=== PATIENT | female | born 1995 | race American Indian/Alaskan Native ===

== ENCOUNTER 2018-06-08 11:08 | Observation (INO) | payer MEDICAID ==
[2018-06-08] MEDS ORDERED: LACTATED RINGERS 500 ML IV ONE (12:00)
[2018-06-08 12:19] LABS: Bilirubin,Urine NEG (Negative); Blood,Urine MOD (Negative); Color,Urine Yellow (Yellow); Mucus,Urine FEW /HPF; Protein,Urine <15 mg/dL mg/dL (Negative); Urobilinogen,Urine < 2.0 mg/dL (<2.0)
[2018-06-08] MEDS ORDERED: ZOFRAN IV STA (12:36)
[2018-06-08 14:01] LABS: Basophils # (Auto) 0.1 K/mm3 (0.0-0.1); Eosinophils % (Auto) 0.9 % (0.0-4.3); Lymphocytes # (Auto) 1.6 K/mm3 (1.2-5.4); Lymphocytes % (Auto) 29.9 % (13.4-35.0); Mean Corpuscular HGB Conc 33 % (30-34); Mean Corpuscular Volume 87 fl (79-97); Monocytes # (Auto) 0.3 K/mm3 (0.0-0.8); Platelet Count 205 K/mm3 (140-440); Red Blood Count 4.15 M/mm3 (3.65-5.03); Red Cell Distribution Width 12.9 % (13.2-15.2)
[2018-06-08 14:20] LABS: Alanine Aminotransferase 6 units/L (7-56); Albumin 3.7 g/dL (3.9-5); BUN/Creatinine Ratio 17; Blood Urea Nitrogen 5 mg/dL (7-17); Calcium 8.9 mg/dL (8.4-10.2); Hemolysis Index 5
[2018-06-08] MEDS ORDERED: ANCEF/NS 1 GM/50 ML 1 GM/50 ML BAG IV ONE (14:45)
--- NOTE | 2018-06-08 15:01 | History and Physical Report ---
History of Present Illness Date of examination: 06/08/18 History of present illness: Patient is a 22 year old , EDC 09/06/18 at 27 weeks gestation who presented to triage complaining of having pain in her right upper back, flank and epigastric region for about 2 weeks. The pain got worse since yesterday and she passed some blood in her urine. She also said that she felt like she had a fever. She denies any cough, chest pain, fluid leakage, or contractions. She reports good movement. In triage, her temp was 98F. tracing is CAT1. Urine is blood tinged. She is [facility] patient. Her records are not available. Past History Past Medical History: no pertinent history Past Surgical History: no surgical history Family/Genetic History: none - Obstetrical History Expected Date of Delivery: 09/06/18 Actual Gestation: 27 Week(s) 1 Day(s) : 4 Para: 3 Number of Living Children: 3 Medications and Allergies Allergies Allergy/AdvReac Type Severity Reaction Status Date / Time No Known Allergies Allergy Verified 06/08/18 11:45 Active Meds: Active Medications Cefazolin Sodium (Ancef/Ns 1 Gm/50 Ml) 1 gm in 50 mls @ 100 mls/hr IV ONCE ONE; Protocol Stop: 06/08/18 15:14 Last Admin: 06/08/18 14:21 Dose: 100 mls/hr Documented by: - Vital Signs Vital signs: Vital Signs Pulse BP 79 121/71 06/08/18 11:45 06/08/18 11:45 Temp Pulse Resp BP Pulse Ox 79 20 121/71 06/08/18 11:47 06/08/18 11:47 06/08/18 11:47 - Physical Exam Cardiovascular: Normal S1, Normal S2 Lungs: Positive: Clear to auscultation Vulva: both: normal Vagina: Positive: other (greenish discharge.) Extremities: Positive: other (++ CVA TN.) Deep Tendon Reflex Grade: Normal +2 - Obstetrical FHR: category 1 Uterine Contraction Monitor Mode: External Cervical Dilatation: 0 Cervical Effacement Percentage: 0 station: -3 Uterine Contraction Pattern: Absent Results Result Diagrams: 06/08/18 13:54 06/08/18 13:54 Abnormal lab results 06/08/18 06/08/18 Range/Units 13:54 13:54 RDW 12.9 L (13.2-15.2) % Carbon Dioxide 21 L (22-30) mmol/L BUN 5 L (7-17) mg/dL Creatinine 0.3 L (0.7-1.2) mg/dL ALT 6 L (7-56) units/L Albumin 3.7 L (3.9-5) g/dL All other labs normal. Assessment and Plan - Patient Problems (1) 27 weeks gestation of Current Visit: Yes Status: Acute (2) Hematuria Current Visit: Yes Status: Acute (3) Pyelonephritis Current Visit: Yes Status: Acute Plan to address problem: IV ancef given. Renal sono to rule out renal stone. (4) Febrile illness Current Visit: Yes Status: Acute Plan to address problem: CBC showed no leukocytosis. Will do rapid flu test. Tylenol for fever. Continue IV hydration. (5) Epigastric abdominal pain Current Visit: Yes Status: Acute Plan to address problem: Gallbladder sono. Chem, LFTs, amylase, lipase. (6) Nausea Current Visit: Yes Status: Acute Plan to address problem: Zofran PRN.
--- NOTE | 2018-06-08 18:16 | Ultrasound Report ---
PROCEDURE: US OB BPP WO NON-STRESS TECHNIQUE: Sonographic evaluation for breathing, movement, tone, and amniotic flui d volume was performed. HISTORY: well being COMPARISONS: None . FINDINGS: FETUS Amniotic fluid volume Normal-score 2. At least one vertical pocket >2 cm or more in vertical axis . breathing: Normal-score 2 . movement: Normal-score 2 . tone: Normal-score 2 . Score: 8 of 8 . IMPRESSION: Normal biophysical profile . This document is electronically signed by Ninfa Wong MD., June 08 2018 06:14:29 PM ET
--- NOTE | 2018-06-08 18:23 | Ultrasound Report ---
PROCEDURE: US OB LIMITED TECHNIQUE: Real-time limited sonographic examination was performed for evaluation of each fetus with image documentation (1 or more fetuses). HISTORY: DORIS and placental placement COMPARISONS: None . FINDINGS: FETUS IUP: Single living intrauterine . Position: Cephalic . Placental position: Anterior grade 0, without previa . Amniotic fluid volume: Amniotic fluid index measures 12.4 cm Heart rate and rhythm: 130 BPM, Regular . anatomic survey: Not performed . IMPRESSION: Amniotic fluid index measures 12.4 cm. This document is electronically signed by Ninfa Wong MD., June 08 2018 06:21:27 PM ET
[2018-06-08] MEDS ORDERED: ZOFRAN ONE (19:42)
[2018-06-08] MEDS: ZOFRAN IV PRN (19:45)
--- NOTE | 2018-06-08 19:58 | Ultrasound Report ---
PROCEDURE: US GALLBLADDER TECHNIQUE: Real-time sonography in multiple planes of the gallbladder fossa and CBD with imaging of the adjacent liver, pancreas, and right kidney was performed with image documentation. CPT 97842 HISTORY: Right upper quadrant pain COMPARISONS: None . FINDINGS: Liver: Normal size and echotexture with no evidence of cystic or solid mass lesion. Gallbladder: Fluid filled. No gallstones, wall thickening, pericholecystic fluid, or sonographic Mur phy's sign. Intrahepatic bile ducts: Normal . Extrahepatic bile ducts: Common bile duct measures 2 mm in caliber. Pancreas: Not fully visualized. Right kidney: Normal echotexture. No focal renal mass, calculus, or hydronephrosis. Other: No free fluid. IMPRESSION: Unremarkable exam . This document is electronically signed by Ninfa Wong MD., June 08 2018 07:56:16 PM ET
[2018-06-08] MEDS ORDERED: TYLENOL PR ONE (20:27)
--- NOTE | 2018-06-08 21:01 | Ultrasound Report ---
PROCEDURE: US RENAL BILAT TECHNIQUE: Real-time sonography in multiple planes of the kidneys, ureters and urinary bladder was p erformed with image documentation. HISTORY: flank pain, hematuria COMPARISONS: None . FINDINGS: RIGHT kidney: Normal echotexture. No focal renal mass, calculus, or hydronephrosis. Length: 12.3 x 6.0 x 6.9 cm. LEFT kidney: Normal echotexture. No focal renal mass, calculus, or hydronephrosis. Length: 10.8 x 5 .6 x 6.2 cm. Bladder: Empty. IMPRESSION: Normal Examination . This document is electronically signed by Allen Gomez MD., June 08 2018 08:58:49 PM ET
[2018-06-08] MEDS ORDERED: LACTATED RINGERS 1,000 ML ONE (21:59)
[2018-06-08] MEDS: LACTATED RINGERS 1,000 ML IV SCH (22:00)
[2018-06-08] MEDS: ANCEF/NS 1 GM/50 ML 1 GM/50 ML BAG IV SCH (22:04)
[2018-06-09] MEDS ORDERED: PITOCin/NS 30 UNIT/500ML 30 UNITS/500 ML BAG IV SCH (05:00)
[2018-06-09] MEDS: ANCEF/NS 1 GM/50 ML 1 GM/50 ML BAG IV SCH (06:00)
[2018-06-09 07:59] VITALS: BP 113/71
[2018-06-09] MEDS: ZOFRAN IV PRN (10:40)
[2018-06-09] MEDS: LACTATED RINGERS 1,000 ML IV SCH (10:40)
[2018-06-09] MEDS ORDERED: TYLENOL PO PRN (10:56)
[2018-06-09] MEDS ORDERED: AFLURIA QUAD 2018-2019 SYRINGE IM ONE (12:00)
--- NOTE | 2018-06-09 15:55 | Discharge Summary ---
Providers - Providers Date of Admission: 06/08/18 15:58 Attending physician: VALERIE CELAYA Primary care physician: VALERIE CELAYA Hospitalization Reason for admission: other (nausea, retching, RUQ pain) Delivery: other (undelivered) Discharge diagnosis: other (nausea) Hospital course: 22yo admitted for observation due to vomiting and RUQ pain. All labs wnl. No electrolyte imbalance. NST reactive. RUQ US negative for gallstones. Renal US negative for kidney stones. Afebrile. Tolerating PO. Discharged home with f/u in clinic within one week. Condition at discharge: Stable Disposition: - TO HOME OR SELFCARE - Discharge Diagnoses (1) Nausea Status: Acute Plan - Provider Discharge Summary Additional instructions: [] Smoking cessation referral if applicable(refer to patient education folder for contact #) [] Refer to [facility] Booklet Call your doctor immediately for: * Fever > 100.5 * Heavy vaginal bleeding ( >1 pad per hour) * Severe persistent headache * Shortness of breath * Reddened, hot, painful area to leg or breast * Drainage or odor from incision. * Keep incision clean and dry at all times and follow doctor's instructions regarding bathing/showering - Follow up plan Follow up: VALERIE CELAYA MD [Primary Care Provider] - 7 Days
== END 2018-06-09 16:36 | disposition home or self-care (01) ==
LOC: TRG 11:08 → LD 15:58
PROVIDERS: ADMIT Obstetrics & Gynecology; ATTEND Obstetrics & Gynecology
DX: O23.02 Infections of kidney in pregnancy, second trimester (principal); O26.892 Other specified pregnancy related conditions, second trimester; R50.9 Fever, unspecified; R11.0 Nausea; R31.9 Hematuria, unspecified; Z3A.27 27 weeks gestation of pregnancy
CPT/HCPCS: 36415; 59025; 76705; 76770; 76815; 76819; 80053; 81001; 82150; 83690; 85025; 87400; 96365; 96366; 96375; 96376; G0378; J0690; J2405; J7120; 90686; 96360; 96374

== ENCOUNTER 2018-08-07 17:03 | Outpatient (CLI) | payer MEDICAID ==
[2018-08-07] MEDS ORDERED: LACTATED RINGERS 1,000 ML IV ONE (17:11)
[2018-08-07] MEDS ORDERED: ZOFRAN IV ONE (17:55)
[2018-08-07 19:05] VITALS: BP 122/65
[2018-08-07 19:35] LABS: Bilirubin,Urine NEG (Negative); Blood,Urine NEG (Negative); Color,Urine Straw (Yellow); Protein,Urine <15 mg/dL mg/dL (Negative); Urobilinogen,Urine < 2.0 mg/dL (<2.0); WBC,Urine < 1.0 /HPF (0.0-6.0)
== END 2018-08-07 20:22 | disposition home or self-care (01) ==
LOC: TRG 17:03
PROVIDERS: ATTEND Obstetrics & Gynecology
DX: O21.2 Late vomiting of pregnancy (principal); O26.893 Other specified pregnancy related conditions, third trimester; R10.30 Lower abdominal pain, unspecified; Z3A.35 35 weeks gestation of pregnancy
CPT/HCPCS: 59025; 81001; 96361; 96374; J2405; J7120; 96360

== ENCOUNTER 2018-08-10 11:44 | Outpatient (CLI) | payer MEDICAID ==
[2018-08-10 12:44] LABS: Hematocrit 31.6 % (30.3-42.9); Hemoglobin 10.9 gm/dl (10.1-14.3); Mean Corpuscular HGB Conc 34 % (30-34); Mean Corpuscular Volume 84 fl (79-97); Platelet Count 185 K/mm3 (140-440); Red Blood Count 3.75 M/mm3 (3.65-5.03); Red Cell Distribution Width 13.1 % (13.2-15.2)
[2018-08-10 12:52] LABS: Bilirubin,Urine NEG (Negative); Blood,Urine NEG (Negative); Color,Urine Yellow (Yellow); Mucus,Urine 1+ /HPF; Protein,Urine <15 mg/dL mg/dL (Negative); Urobilinogen,Urine < 2.0 mg/dL (<2.0)
[2018-08-10] MEDS ORDERED: LACTATED RINGERS 500 ML IV ONE (13:00)
[2018-08-10 13:07] LABS: Alanine Aminotransferase 9 units/L (7-56); Uric Acid 4.2 mg/dL (3.5-7.6)
[2018-08-10] MEDS ORDERED: TYLENOL PO ONE (13:48)
[2018-08-10 14:52] VITALS: BP 132/67
== END 2018-08-10 15:13 | disposition home or self-care (01) ==
LOC: TRG 11:44
PROVIDERS: ATTEND Obstetrics & Gynecology
DX: O47.03 False labor before 37 completed weeks of gestation, third trimester (principal); O13.3 Gestational [pregnancy-induced] hypertension without significant proteinuria, third trimester; Z3A.36 36 weeks gestation of pregnancy
CPT/HCPCS: 36415; 59025; 81001; 82565; 83615; 84450; 84460; 84550; 85027; 87086

== ENCOUNTER 2018-08-16 14:43 | Outpatient (CLI) | payer MEDICAID ==
[2018-08-16 15:31] VITALS: BP 117/73
== END 2018-08-16 15:49 | disposition other institution (70) ==
LOC: TRG 14:43
PROVIDERS: ATTEND Obstetrics & Gynecology
DX: O47.03 False labor before 37 completed weeks of gestation, third trimester (principal); O13.3 Gestational [pregnancy-induced] hypertension without significant proteinuria, third trimester; Z3A.37 37 weeks gestation of pregnancy
CPT/HCPCS: 36415; 59025; 71275; 80048; 80076; 83880; 84484; 84702; 85025; 85379; 85610; 85730; 93005; 93010; 96360; J7120; Q9967

== ENCOUNTER 2018-08-16 16:01 | Outpatient (CLI) | payer MEDICAID ==
--- NOTE | 2018-08-16 16:19 | Emergency Department Report ---
Blank Doc - Documentation Documentation: This is a 22-year-old female that presents with chest pain and SOB. Stated is 37 weeks . This initial assessment/diagnostic orders/clinical plan/treatment(s) is/are subject to change based on patient's health status, clinical progression and re- assessment by fellow clinical providers in the ED. Further treatment and workup at subsequent clinical providers discretion. Patient/guardians urged not to elope from the ED as their condition may be serious if not clinically assessed and managed. Initial orders include: 1- Patient sent to MAIN ED for further evaluation and treatment 2- labs 3- EKG
[2018-08-16 16:46] LABS: Basophils % (Auto) 0.5 % (0.0-1.8); Eosinophils % (Auto) 0.6 % (0.0-4.3); Hematocrit 31.3 % (30.3-42.9); Hemoglobin 10.4 gm/dl (10.1-14.3); Lymphocytes # (Auto) 1.8 K/mm3 (1.2-5.4); Lymphocytes % (Auto) 27.3 % (13.4-35.0); Mean Corpuscular HGB Conc 33 % (30-34); Mean Corpuscular Volume 86 fl (79-97); Monocytes # (Auto) 0.4 K/mm3 (0.0-0.8); Monocytes % (Auto) 6.8 % (0.0-7.3); Platelet Count 212 K/mm3 (140-440); Red Blood Count 3.65 M/mm3 (3.65-5.03); Red Cell Distribution Width 13.4 % (13.2-15.2)
[2018-08-16 16:56] LABS: INR 0.98 (0.87-1.13); Partial Thromboplastin Time 25.5 Sec. (24.2-36.6)
[2018-08-16 17:12] LABS: BUN/Creatinine Ratio 13; Blood Urea Nitrogen 5 mg/dL (7-17); Calcium 8.9 mg/dL (8.4-10.2); Hemolysis Index 4
--- NOTE | 2018-08-16 18:19 | Emergency Department Report ---
ED Shortness of Breath HPI - General Chief Complaint: Chest Pain Stated Complaint: Chest pain with naresh Time Seen by Provider: 08/16/18 16:18 Source: patient Mode of arrival: Ambulatory Limitations: No Limitations - History of Present Illness Initial Comments: 22-year-old female with a past medical history of elevated blood pressure during previous presents to the ER as to be sent from L&D to be evaluated for shortness of breath. Patient states that this morning while walking to the store she felt shortness of breath and felt like her hands were swollen and tight. After taking a shower hand tightness and swelling improved. Patient reports swelling to her legs/ankles that resolved 2 days ago. She recently completed a workup for preeclampsia including 24 hour urine collection. Upon follow-up visit yesterday she was told that she had both seen in her urine but her blood pressure had improved and therefore no further treatment was recommended. Patient states she also went to labor and delivery complaining of contractions which has since resolved. Patient also states that she has no left eye feeling shortness of breath and denies chest pain. This is her fourth , she has 3 living children, denies previous history of miscarriages or abortions. Also denies recent travel, calf tenderness, unilateral leg edema, or history of PE/DVT. 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 [employer] 2ND SHIFT: Oliver Parker - Related Data Home Medications Medication Instructions Recorded Confirmed Last Taken No Known Home Medications [No 08/16/18 08/16/18 Unknown Reported Home Medications] Allergies Allergy/AdvReac Type Severity Reaction Status Date / Time No Known Allergies Allergy Verified 08/16/18 16:01 ED Review of Systems ROS: Stated complaint: Chest pain with naresh Other details as noted in HPI Comment: All other systems reviewed and negative ED Past Medical Hx - Past Medical History Previous Medical History?: No Hx Hypertension: No Hx Congestive Heart Failure: No Hx Diabetes: No Hx Deep Vein Thrombosis: No Hx Renal Disease: No Hx Sickle Cell Disease: No Hx Seizures: No Hx Asthma: No Hx COPD: No Hx HIV: No - Surgical History Past Surgical History?: No - Social History Smoking Status: Never Smoker Substance Use Type: None - Medications Home Medications: Home Medications Medication Instructions Recorded Confirmed Last Taken Type No Known Home Medications [No 08/16/18 08/16/18 Unknown History Reported Home Medications] ED Physical Exam - General Limitations: No Limitations - Other Other exam information: General: No limitations, patient is alert in no acute distress Head exam: Atraumatic, normocephalic Eyes exam: Normal appearance, non-icteric sclera ENT: Moist mucous membrane Neck exam: Normal inspection, full range of motion, no meningismus nontender Respiratory exam: Clear to auscultation bilateral, no wheezes, rales, crackles Cardiovascular: Normal rate and rhythm, normal heart sounds Abdomen: Soft, nondistended, and nontender, with normal bowel sounds, no rebound, or guarding Extremity: Full range of motion normal inspection no deformity, no calf tenderness or leg edema Back: Normal Inspection, full range of motion, no tenderness Neurologic: Alert, oriented x3, cranial nerves intact, no motor or sensory deficit Psychiatric: normal affect, normal mood Skin: Warm, dry, intact ED Course Vital Signs 08/16/18 08/16/18 08/16/18 16:19 18:10 19:21 Temperature 98.1 F Pulse Rate 90 96 H Respiratory 20 18 Rate Blood Pressure 150/88 127/75 Blood Pressure 127/75 [Left] O2 Sat by Pulse 100 100 100 Oximetry 08/16/18 19:27 Temperature Pulse Rate 105 H Respiratory 22 Rate Blood Pressure Blood Pressure 154/89 [Left] O2 Sat by Pulse 100 Oximetry - Reevaluation(s) Reevaluation #1: 08/16/18 19:42 Patient blood pressure and HR iinitially improved compared to triage values. When she began experience contractions and pain her pressure increased again. Patient will be sent to labor and delivery while awaiting CT angiogram results. Still awaiting Dr Renetta parker call back - Consultations Consultation #1: 08/16/18 19:[address] Renetta Parker call back case d/w nurse Lili with L and D since pt is complaining of contracts since I am unable to speak to Dr. Parker at this time patient will be sent to labor and delivery while awaiting his call back. I am still awaiting CT angiogram chest results, patient does not have any signs of tachycardia or hypoxia. 08/16/18 19:45 Dr parker called back at this time. Aware pt on way to L and D and we are awaiting ct angio results. 08/16/18 21:[address] Oliver Parker. Patient is clear from the ER standpoint. Recommended outpatient vascular Doppler tomorrow to rule out DVT given the elevated d-dimer. However, patient does not have any clinical symptoms of DVT elevated d-dimer is expected in . ED Medical Decision Making - Lab Data Result diagrams: 08/16/18 16:33 08/16/18 16:33 Lab Results 08/16/18 08/16/18 08/16/18 Range/Units 16:33 16:33 16:33 WBC 6.5 (4.5-11.0) K/mm3 RBC 3.65 (3.65-5.03) M/mm3 Hgb 10.4 (10.1-14.3) gm/dl Hct 31.3 (30.3-42.9) % MCV 86 (79-97) fl MCH 29 (28-32) pg MCHC 33 (30-34) % RDW 13.4 (13.2-15.2) % Plt Count 212 (140-440) K/mm3 Lymph % (Auto) 27.3 (13.4-35.0) % Christian % (Auto) 6.8 (0.0-7.3) % Eos % (Auto) 0.6 (0.0-4.3) % Baso % (Auto) 0.5 (0.0-1.8) % Lymph # 1.8 (1.2-5.4) K/mm3 Christian # 0.4 (0.0-0.8) K/mm3 Eos # 0.0 (0.0-0.4) K/mm3 Baso # 0.0 (0.0-0.1) K/mm3 Seg Neutrophils % 64.8 (40.0-70.0) % Seg Neutrophils # 4.2 (1.8-7.7) K/mm3 PT 12.7 (12.2-14.9) Sec. INR 0.98 (0.87-1.13) APTT 25.5 (24.2-36.6) Sec. D-Dimer 3417.01 H (0-234) ng/mlDDU Sodium 136 L (137-145) mmol/L Potassium 3.5 L (3.6-5.0) mmol/L Chloride 102.0 (98-107) mmol/L Carbon Dioxide 21 L (22-30) mmol/L Anion Gap 17 mmol/L BUN 5 L (7-17) mg/dL Creatinine 0.4 L (0.7-1.2) mg/dL Estimated GFR > 60 ml/min BUN/Creatinine Ratio 13 % Glucose 91 (65-100) mg/dL Calcium 8.9 (8.4-10.2) mg/dL Total Bilirubin (0.1-1.2) mg/dL Direct Bilirubin (0-0.2) mg/dL Indirect Bilirubin mg/dL AST (5-40) units/L ALT (7-56) units/L Alkaline Phosphatase (35-129) units/L Troponin T < 0.010 (0.00-0.029) ng/mL NT-Pro-B Natriuret Pep (0-450) pg/mL Total Protein (6.3-8.2) g/dL Albumin (3.9-5) g/dL Albumin/Globulin Ratio % HCG, Quant (0-4) mIU/mL 08/16/18 08/16/18 08/16/18 Range/Units 16:33 16:40 19:18 WBC (4.5-11.0) K/mm3 RBC (3.65-5.03) M/mm3 Hgb (10.1-14.3) gm/dl Hct (30.3-42.9) % MCV (79-97) fl MCH (28-32) pg MCHC (30-34) % RDW (13.2-15.2) % Plt Count (140-440) K/mm3 Lymph % (Auto) (13.4-35.0) % Christian % (Auto) (0.0-7.3) % Eos % (Auto) (0.0-4.3) % Baso % (Auto) (0.0-1.8) % Lymph # (1.2-5.4) K/mm3 Christian # (0.0-0.8) K/mm3 Eos # (0.0-0.4) K/mm3 Baso # (0.0-0.1) K/mm3 Seg Neutrophils % (40.0-70.0) % Seg Neutrophils # (1.8-7.7) K/mm3 PT (12.2-14.9) Sec. INR (0.87-1.13) APTT (24.2-36.6) Sec. D-Dimer (0-234) ng/mlDDU Sodium (137-145) mmol/L Potassium (3.6-5.0) mmol/L Chloride (98-107) mmol/L Carbon Dioxide (22-30) mmol/L Anion Gap mmol/L BUN (7-17) mg/dL Creatinine (0.7-1.2) mg/dL Estimated GFR ml/min BUN/Creatinine Ratio % Glucose (65-100) mg/dL Calcium (8.4-10.2) mg/dL Total Bilirubin 0.30 (0.1-1.2) mg/dL Direct Bilirubin < 0.2 (0-0.2) mg/dL Indirect Bilirubin 0.1 mg/dL AST 15 (5-40) units/L ALT 10 (7-56) units/L Alkaline Phosphatase 151 H (35-129) units/L Troponin T < 0.010 (0.00-0.029) ng/mL NT-Pro-B Natriuret Pep 105.1 (0-450) pg/mL Total Protein 6.2 L (6.3-8.2) g/dL Albumin 3.7 L (3.9-5) g/dL Albumin/Globulin Ratio 1.5 % HCG, Quant 7419 H (0-4) mIU/mL - EKG Data -: EKG Interpreted by Oh EKG shows normal: sinus rhythm, axis (qrs 21), QRS complexes (qrsd 80), ST-T waves (no stemi) Rate: tachycardia (121 (pt states she was nervous during ekg)) - Radiology Data Radiology results: report reviewed PROCEDURE: CT ANGIO CHEST TECHNIQUE: Computerized tomographic angiography of the chest was performed after the IV injection of iodinated nonionic contrast including image processing. The image data was postprocessed using 2-dimensional multiplanar reformatted (MPR) and 3-dimensional (MIP and/or volume rendered) techniques. Automated exposure control, adjustment of mA and/or kV according to patient size, or iterative reconstruction dose optimization techniques were utilized. CT DOSE LENGTH PRODUCT: 1193.6 mGycm HISTORY: sob, 37 weeks preg, elevated ddimer COMPARISONS: None . FINDINGS: Entire lungs are not imaged. Contrast bolus timing is suboptimal for evaluation of the pulmonary arteries. The central pulmonary arteries only can be assessed. Heart and pericardium: Normal. Thoracic aorta: Normal. Pulmonary vasculature: Normal. Lymph nodes: No enlarged thoracic lymph nodes. Lungs: Mild interstitial prominence without large effusion identified. Pleural space: No effusion, thickening, or pneumothorax. Musculoskeletal structures: No significant abnormality. Upper abdominal structures: No significant abnormality. Prominent liver. IMPRESSION: Suboptimal contrast bolus timing for assessment of the pulmonary arteries. No central embolus. No definite distal embolus on the MIP reconstructed images. Mild prominence of bronchovascular interstitium may represent mild interstitial edema. Prominent liver incompletely imaged. - Medical Decision Making Patient was sent to labor and delivery with CTA of the chest pending since she began to experience contractions. CT results reviewed and no central pulmonary embolus and finding of mild prominence of the bronchovascular interstitium that may represent mild interstitial edema reviewed her back, patient has a normal BNP and otherwise does not appear to have any pulmonary edema or signs of heart failure. Case was discussed with Dr. Parker after results. Patient is cleared from the ED standpoint. She is asymptomatic in the hypoxia and persistent tachycardia. Recommend patient to return tomorrow for outpatient vascular Doppler. Cardiac Enzymes negative [address] elevation CA or concerns for non-STEMI. Patient to be disposed from MAINTENA[employer]CE [employer] 2[employer] standpoint by Dr. Parker. I discussed with him that they may need to arrange for outpatient Doppler tomorrow since it is not available tonight. - Differential Diagnosis dyspnea and , CHF, pulmonary embolism, preeclampsia Critical Care Time: No Critical care attestation.: If time is entered above; I have spent that time in minutes in the direct care of this critically ill patient, excluding procedure time. ED Disposition Clinical Impression: 37 weeks gestation of , Dyspnea, Uterine contractions Disposition: DC-30 STILL A PATIENT Is pt being admited?: No Condition: Stable Time of Disposition: 21:09 (pt was transfered to L and D )
[2018-08-16 19:27] LABS: Alanine Aminotransferase 10 units/L (7-56); Albumin 3.7 g/dL (3.9-5)
[2018-08-16 19:37] LABS: Bilirubin,Direct < 0.2 mg/dL (0-0.2)
--- NOTE | 2018-08-16 19:58 | Cat Scan Report ---
PROCEDURE: CT ANGIO CHEST TECHNIQUE: Computerized tomographic angiography of the chest was performed after the IV injection of iodinated nonionic contrast including image processing. The image data was postprocessed using 2-di mensional multiplanar reformatted (MPR) and 3-dimensional (MIP and/or volume rendered) techniques. Au tomated exposure control, adjustment of mA and/or kV according to patient size, or iterative reconstr uction dose optimization techniques were utilized. CT DOSE LENGTH PRODUCT: 1193.6 mGycm HISTORY: sob, 37 weeks preg, elevated ddimer COMPARISONS: None . FINDINGS: Entire lungs are not imaged. Contrast bolus timing is suboptimal for evaluation of the pulmonary arteries. The central pulmonary a rteries only can be assessed. Heart and pericardium: Normal. Thoracic aorta: Normal. Pulmonary vasculature: Normal. Lymph nodes: No enlarged thoracic lymph nodes. Lungs: Mild interstitial prominence without large effusion identified. Pleural space: No effusion, thickening, or pneumothorax. Musculoskeletal structures: No significant abnormality. Upper abdominal structures: No significant abnormality. Prominent liver. IMPRESSION: Suboptimal contrast bolus timing for assessment of the pulmonary arteries. No central emb olus. No definite distal embolus on the MIP reconstructed images. Mild prominence of bronchovascular interstitium may represent mild interstitial edema. Prominent liver incompletely imaged. The lung bases are not imaged. This document is electronically signed by Ines Coronado MD., August 16 2018 07:56:16 PM ET
[2018-08-16] MEDS ORDERED: LACTATED RINGERS 1,000 ML ONE (21:12)
[2018-08-16] MEDS ORDERED: LACTATED RINGERS 1,000 ML IV SCH (22:00)
[2018-08-16 22:18] VITALS: BP 110/56
== END 2018-08-16 22:55 | disposition home or self-care (01) ==
LOC: TRG 16:01 → ED 16:01 → EDSTATUS 19:59 → TRG 20:03 → LD 20:03 → ED 20:43 → LD 21:11 → TRG 21:11
PROVIDERS: ATTEND Obstetrics & Gynecology
DX: O26.893 Other specified pregnancy related conditions, third trimester (principal); R10.2 Pelvic and perineal pain; R07.9 Chest pain, unspecified; R06.00 Dyspnea, unspecified; Z3A.37 37 weeks gestation of pregnancy
CPT/HCPCS: 36415; 59025; 71275; 80048; 80076; 83880; 84484; 84702; 85025; 85379; 85610; 85730; 93005; 93010; J7120; Q9967; 96360

== ENCOUNTER 2018-08-18 18:43 | Outpatient (CLI) | payer MEDICAID ==
[2018-08-18 19:29] VITALS: BP 126/83
== END 2018-08-18 21:10 | disposition home or self-care (01) ==
LOC: TRG 18:43
PROVIDERS: ATTEND Obstetrics & Gynecology
DX: O47.03 False labor before 37 completed weeks of gestation, third trimester (principal); O62.8 Other abnormalities of forces of labor; Z3A.37 37 weeks gestation of pregnancy
CPT/HCPCS: 59025

== ENCOUNTER 2018-08-22 15:18 | Outpatient (CLI) | payer MEDICAID ==
[2018-08-22 16:50] LABS: Hematocrit 29.4 % (30.3-42.9); Hemoglobin 10.1 gm/dl (10.1-14.3); Mean Corpuscular HGB Conc 34 % (30-34); Mean Corpuscular Volume 84 fl (79-97); Platelet Count 222 K/mm3 (140-440); Red Blood Count 3.49 M/mm3 (3.65-5.03); Red Cell Distribution Width 13.3 % (13.2-15.2)
[2018-08-22 17:28] LABS: Alanine Aminotransferase 8 units/L (7-56)
[2018-08-22] MEDS ORDERED: TYLENOL PO ONE (17:38)
[2018-08-22 18:01] LABS: Bilirubin,Urine NEG (Negative); Blood,Urine NEG (Negative); Color,Urine Yellow (Yellow); Mucus,Urine 3+ /HPF; Urobilinogen,Urine < 2.0 mg/dL (<2.0)
[2018-08-22 20:20] LABS: Uric Acid 4.2 mg/dL (3.5-7.6)
[2018-08-22 20:22] VITALS: BP 130/74
== END 2018-08-22 21:00 | disposition home or self-care (01) ==
LOC: TRG 15:18
PROVIDERS: ATTEND Obstetrics & Gynecology
DX: O47.1 False labor at or after 37 completed weeks of gestation (principal); O13.3 Gestational [pregnancy-induced] hypertension without significant proteinuria, third trimester; Z3A.38 38 weeks gestation of pregnancy
CPT/HCPCS: 36415; 59025; 81001; 82565; 83615; 84450; 84460; 84550; 85027

== ENCOUNTER 2018-08-27 13:00 | Inpatient (IN) | payer MEDICAID ==
[2018-08-27] MEDS ORDERED: PITOCin/NS 20 UNIT/1000ML DRIP 20,000 MILLIUNITS/1,000 ML BAG IV ONE (13:42)
[2018-08-27] MEDS ORDERED: ZOFRAN IV PRN ×2 (13:42→15:00)
[2018-08-27] MEDS ORDERED: BRETHINE SUB-Q PRN (13:42)
[2018-08-27] MEDS ORDERED: SUBLIMAZE IV PRN (13:42)
[2018-08-27] MEDS ORDERED: LACTATED RINGERS 1,000 ML ONE (13:42)
[2018-08-27] MEDS ORDERED: BRETHINE IVP PRN (13:42)
[2018-08-27] MEDS ORDERED: SUBLIMAZE ONE (13:42)
[2018-08-27] MEDS ORDERED: MINERAL OIL PO PRN (13:42)
[2018-08-27] MEDS ORDERED: STADOL IV PRN (13:42)
[2018-08-27] MEDS ORDERED: XYLOCAINE 2% INFILTRATI ONE (13:42)
[2018-08-27] MEDS ORDERED: AMPICILLIN/NS 2 GM/100 ML 2 GM/100 ML BAG IV ONE (13:45)
--- NOTE | 2018-08-27 13:48 | History and Physical Report ---
History of Present Illness Date of examination: 08/27/18 Date of admission: 08/27/18 13:31 Chief complaint: Labor History of present illness: Pt is a 22yo BF EDC 09/06/18; EGA 38 4/7 weeks presents to L&D complaining of RUC's q 3-4 min and SROM. She received care at [facility] since 17 weeks and course has been unremarkable. records are available and GBS is Negative. Past History Past Medical History: no pertinent history Past Surgical History: no surgical history Family/Genetic History: none Social history: no significant social history, single - Obstetrical History Expected Date of Delivery: 09/06/18 Actual Gestation: 38 Week(s) 4 Day(s) : 4 Medications and Allergies Allergies Allergy/AdvReac Type Severity Reaction Status Date / Time No Known Allergies Allergy Verified 08/16/18 16:01 Home Medications Medication Instructions Recorded Confirmed Last Taken Type No Known Home Medications [No 08/16/18 08/16/18 Unknown History Reported Home Medications] Active Meds: Active Medications Ephedrine Sulfate (Ephedrine Sulfate) 10 mg IV Q2M PRN PRN Reason: Hypotension Oxytocin/Sodium Chloride (Pitocin/Ns 20 Unit/1000ml Drip) 20 units in 1,000 mls @ 125 mls/hr IV DIRECT CHLOÉ Oxytocin/Sodium Chloride (Pitocin/Ns 30 Unit/500ml) 30 units in 500 mls @ 1 mls/hr IV TITR CHLOÉ; Protocol Lidocaine (Xylocaine 2%) 20 ml INFILTRATI ONCE ONE Stop: 08/27/18 13:43 Mineral Oil (Mineral Oil) 30 ml PO QHS PRN PRN Reason: Constipation Terbutaline Sulfate (Brethine) 0.25 mg SUB-Q ONCE PRN PRN Reason: Hyperstimulation/Hypertonicity Terbutaline Sulfate (Brethine) 0.25 mg IVP ONCE PRN PRN Reason: Hyperstimulation/Hypertonicity Review of Systems All systems: negative - Physical Exam Breasts: Positive: deferred Cardiovascular: Regular rate Abdomen: Positive: normal appearance Genitourinary (Female): Positive: normal external genitalia Vagina: Positive: normal moisture Uterus: Positive: enlarged Extremities: Positive: normal - Obstetrical FHR: category 1 Uterine Contraction Monitor Mode: External Cervical Dilatation: 8 Cervical Effacement Percentage: 100 station: -1 Uterine Contraction Pattern: Regular Uterine Tone Measurement Phase: Contraction Uterine Contraction Intensity: Strong/Firm Results Result Diagrams: 08/27/18 13:50 All other labs normal. Ultrasound: report reviewed Assessment and Plan - Patient Problems (1) 38 weeks gestation of Onset Date: 08/27/18 Current Visit: Yes Status: Acute Plan to address problem: A: IUP @ 38 4/7 weeks in labor Negative GBS P: Admit to L&D for expectant vaginal delivery
[2018-08-27 13:59] LABS: Hematocrit 32.7 % (30.3-42.9); Hemoglobin 11.1 gm/dl (10.1-14.3); Mean Corpuscular HGB Conc 34 % (30-34); Mean Corpuscular Volume 85 fl (79-97); Platelet Count 230 K/mm3 (140-440); Red Blood Count 3.86 M/mm3 (3.65-5.03); Red Cell Distribution Width 13.1 % (13.2-15.2)
[2018-08-27] MEDS ORDERED: PITOCin/NS 30 UNIT/500ML 30 UNITS/500 ML BAG IV SCH (14:00)
[2018-08-27] MEDS ORDERED: PITOCin/NS 20 UNIT/1000ML DRIP 20 UNITS/1,000 ML BAG IV SCH ×2 (14:00→15:00)
[2018-08-27] MEDS ORDERED: LACTATED RINGERS 1,000 ML IV SCH (14:00)
--- NOTE | 2018-08-27 14:06 | Ultrasound Report ---
PROCEDURE: US OB LIMITED TECHNIQUE: Limited obstetrical ultrasound for presentation. HISTORY: presentation COMPARISON: None FINDINGS: There is a third trimester single live intrauterine . presentation is cephalic. cardiac activity is measured at 139 cm/s. IMPRESSION: Cephalic presentation This document is electronically signed by Nandini Uriarte MD., August 27 2018 02:04:44 PM ET
--- NOTE | 2018-08-27 14:41 | Procedure Note ---
OB Delivery Note - Delivery Date of Delivery: 08/27/18 Surgeon: VALERIE CELAYA Estimated blood loss: 200cc - Vaginal Delivery presentation: vertex Delivery position: OA Intrapartum events: precipitous labor- <3hr Delivery induction: none Delivery augmentation: rupture of membranes Delivery monitor: external FHT, external uterine Route of delivery: Delivery placenta: spontaneous Delivery cord: 3 umbilical vessels Episiotomy: none Delivery laceration: none Anesthesia: none Delivery comments: delivered OA and placed on Mom's chest for [id number] bonding and delayed cord clamping, cut by Dad - Infant A at 1 minute: 8 at 5 minutes: 9 Gender: Male (3114gms)
[2018-08-27] MEDS ORDERED: TYLENOL PO PRN (14:43)
[2018-08-27] MEDS ORDERED: PHENERGAN PO PRN (15:00)
[2018-08-27] MEDS ORDERED: SENOKOT S PO SCH (15:00)
[2018-08-27] MEDS ORDERED: PHENERGAN PR PRN (15:00)
[2018-08-27] MEDS ORDERED: TUCKS PAD TP PRN (15:00)
[2018-08-27] MEDS ORDERED: SODIUM CHLORIDE FLUSH SYRINGE 10 ML IV NR (15:00)
[2018-08-27] MEDS ORDERED: DULCOLAX PR PRN (15:00)
[2018-08-27] MEDS ORDERED: BENADRYL PO PRN (15:00)
[2018-08-27] MEDS ORDERED: LANSINOH TP PRN (15:00)
[2018-08-27] MEDS: IBUPROFEN PO SCH ×2 (16:10→22:27)
[2018-08-27] MEDS ORDERED: AMPICILLIN/NS 1 GM/50 ML 1 GM/50 ML BAG IV SCH (17:43)
[2018-08-27] MEDS: NORCO 5/325 PO PRN (19:50)
[2018-08-27] MEDS ORDERED: MILK OF MAGNESIA PO PRN (22:00)
[2018-08-27] MEDS: COLACE PO SCH (22:27)
[2018-08-27] MEDS: FEOSOL PO SCH (22:27)
[2018-08-28] MEDS: IBUPROFEN PO SCH ×2 (04:00→11:39)
[2018-08-28] MEDS ORDERED: BOOSTRIX IM ONE ×2 (06:00→14:43)
[2018-08-28 06:06] LABS: Hematocrit 26.2 % (30.3-42.9); Hemoglobin 8.9 gm/dl (10.1-14.3)
--- NOTE | 2018-08-28 09:12 | Progress Note ---
Assessment and Plan - Patient Problems (1) 38 weeks gestation of Onset Date: 08/27/18 Current Visit: Yes Status: Resolved (2) (normal spontaneous vaginal delivery) Onset Date: 08/28/18 Current Visit: Yes Status: Resolved Plan to address problem: A: S/P - PPD #1 Doing well Asymptomatic anemia - stable P: May go home today. (3) Acute blood loss anemia Onset Date: 08/28/18 Current Visit: Yes Status: Resolved Subjective - Subjective Date of service: 08/28/18 Principal diagnosis: s/p - PPD #1 Interval history: Pt is feeling well without complaints. Bleeding improved. Patient reports: appetite normal, voiding normally, pain well controlled, flatus, ambulating normally, no dizzy ambulation, no nauseated [place]: doing well, bottle feeding Objective - Vital Signs Latest vital signs: Vital Signs Temp Pulse Resp BP BP Pulse Ox 08/28/18 07:36 97.8 F 84 16 120/81 96 08/28/18 01:43 97.6 F 88 20 121/66 99 08/27/18 20:17 98.1 F 24 134/77 08/27/18 16:37 98.5 F 122/73 08/27/18 16:30 98.5 F 76 16 122/73 08/27/18 16:10 16 08/27/18 15:43 79 138/88 08/27/18 15:31 77 124/87 08/27/18 14:58 81 131/85 08/27/18 14:43 85 129/85 08/27/18 13:56 90 137/94 08/27/18 13:45 22 Intake and Output 08/27/18 08/28/18 08/28/18 22:59 06:59 14:59 Intake Total 360 Output Total 500 Balance -500 360 Intake: Intake, Free Water 360 Output: Urine 500 Void 500 Other: Total, Output Amount 500 # Voids Void 2 - Exam Breasts: Present: deferred Abdomen: Present: normal appearance, soft Uterus: Present: normal, firm, fundal height below umbilicus Extremities: Present: normal - Labs Labs: Abnormal lab results 08/27/18 08/28/18 Range/Units 13:50 05:50 Hgb 8.9 L (10.1-14.3) gm/dl Hct 26.2 L D (30.3-42.9) % RDW 13.1 L (13.2-15.2) % Laboratory Tests 08/27/18 08/27/18 08/27/18 13:50 13:50 13:50 WBC 9.9 RBC 3.86 Hgb 11.1 Hct 32.7 MCV 85 MCH 29 MCHC 34 RDW 13.1 L Plt Count 230 RPR Nonreactive Blood Type B POSITIVE Antibody Screen Negative 08/28/18 05:50 WBC RBC Hgb 8.9 L Hct 26.2 L D MCV MCH MCHC RDW Plt Count RPR Blood Type Antibody Screen
--- NOTE | 2018-08-28 09:15 | Discharge Summary ---
Providers - Providers Date of Admission: 08/27/18 13:31 Date of discharge: 08/28/18 Attending physician: VALERIE CELAYA Primary care physician: JENNIFER CEE MD Hospitalization Reason for admission: active labor, rupture of membranes, IUP at term Delivery: Episiotomy: none Laceration: none Other procedures: none complications: none Discharge diagnosis: IUP at term delivered [place] baby: male Hospital course: Unremarkable. Condition at discharge: Good Disposition: DC-01 TO HOME OR SELFCARE - Discharge Diagnoses (1) 38 weeks gestation of Status: Resolved (2) (normal spontaneous vaginal delivery) Status: Resolved (3) Acute blood loss anemia Status: Resolved Plan - Discharge Medications Prescriptions: Ferrous Sulfate [Feosol 325 MG tab] 325 mg PO BID #60 tablet Ibuprofen [Motrin 600 MG tab] 600 mg PO Q6H #30 tablet Vit-Fe Fumar-FA [ Vitamin] 1 each PO QDAY #30 tablet - Provider Discharge Summary Activity: routine, no sex for 6 weeks, no heavy lifting 4 weeks, no strenuous exercise Diet: routine Instructions: routine Additional instructions: [] Smoking cessation referral if applicable(refer to patient education folder for contact #) [] Refer to [facility]'s [facility] Booklet Call your doctor immediately for: * Fever > 100.5 * Heavy vaginal bleeding ( >1 pad per hour) * Severe persistent headache * Shortness of breath * Reddened, hot, painful area to leg or breast * Drainage or odor from incision. * Keep incision clean and dry at all times and follow doctor's instructions regarding bathing/showering - Follow up plan Follow up: PRIMARY CARE, [Primary Care Provider] - 6 Weeks SONU IQBAL NP [Referring] - 6 Weeks
[2018-08-28] MEDS: FEOSOL PO SCH (09:23)
[2018-08-28] MEDS: COLACE PO SCH (09:23)
[2018-08-28] MEDS ORDERED: PRENATAL VITAMIN PO SCH (10:00)
[2018-08-28] MEDS: NORCO 5/325 PO PRN (11:40)
[2018-08-28 13:47] VITALS: BP 132/88
[2018-08-28] MEDS ORDERED: M-M-R II VACCINE SUB-Q ONE (14:43)
== END 2018-08-28 21:30 | disposition home or self-care (01) | DRG 775 ==
LOC: TRG 13:00 → LD 13:31 → OB 16:48
PROVIDERS: ADMIT Obstetrics & Gynecology; ATTEND Obstetrics & Gynecology
PROC: 10E0XZZ Delivery of Products of Conception, External Approach (ICD-10-PCS; principal; 2018-08-27)
PROC: 3E0234Z Introduction of Serum, Toxoid and Vaccine into Muscle, Percutaneous Approach (ICD-10-PCS; 2018-08-28)
DX: O62.3 Precipitate labor (principal); D62 Acute posthemorrhagic anemia; O99.02 Anemia complicating childbirth; Z3A.38 38 weeks gestation of pregnancy; Z37.0 Single live birth; Z23 Encounter for immunization
CPT/HCPCS: 36415; 76815; 81001; 85014; 85018; 85025; 85027; 86592; 86850; 86900; 86901; 87086; 90471; 90715; G0378; A6250; J0290; J0690; J2590; J3010; J7120